=== PATIENT | female | born 1935 | race Caucasian/White ===

== ENCOUNTER → 2018-01-29 | Outpatient (CLI) | payer MEDICARE ==
[~2018-01-29] MED LIST: AMLO5TAB4 PO; ASPI-496 PO; ASPI325T17 PO; LISI-170 PO; OXYC-302 PO; REGADENOSON 0.4 MG/5 ML SYRINGE ONE
== END ==
LOC: RAD 07:11
PROVIDERS: ATTEND Internal Medicine Cardiovascular Disease
DX: I10 Essential (primary) hypertension (principal)
CPT/HCPCS: 78452; 93017; A9502; J2785

== ENCOUNTER → 2018-01-30 | Outpatient (CLI) | payer MEDICARE ==
[~2018-01-30] MED LIST changes: -REGADENOSON 0.4 MG/5 ML SYRINGE ONE
== END | disposition home or self-care (01) ==
LOC: CVU 11:22
PROVIDERS: ATTEND Internal Medicine Cardiovascular Disease
DX: I08.3 Combined rheumatic disorders of mitral, aortic and tricuspid valves (principal); E78.5 Hyperlipidemia, unspecified; I10 Essential (primary) hypertension; Z86.73 Personal history of transient ischemic attack (TIA), and cerebral infarction without residual deficits
CPT/HCPCS: 93306

== ENCOUNTER 2018-07-09 12:15 | Emergency (ER) | payer MEDICARE ==
[~2018-07-09] VITALS: Ht 157.5 cm; Wt 64.0 kg
[2018-07-09 12:19] VITALS: BP 187/91
== END 2018-07-09 12:48 | disposition home or self-care (01) ==
LOC: ED 12:15
DX: M25.571 Pain in right ankle and joints of right foot (principal); I10 Essential (primary) hypertension; Z86.73 Personal history of transient ischemic attack (TIA), and cerebral infarction without residual deficits
CPT/HCPCS: 99283

== ENCOUNTER 2019-03-04 07:01 | Emergency (ER) | payer MEDICARE ==
[~2019-03-04] VITALS: Ht 157.5 cm; Wt 65.7 kg
[2019-03-04 07:06] VITALS: BP 168/88
--- NOTE | 2019-03-04 07:22 | NUR ---
83 Y/O FEMALE PRESENTS TO ED WITH C/O LEFT SHOULDER PAIN. PER PT "I WAS WALKING WITH A RAKE AND MY WALKING STICK AND I TRIPPED AND FELL ONTO THE CONCRETE. MY LEFT SHOULDER IS HURTING PRETTY BAD." PT PLACED INTO GOWN. NO ACUTE DISTRESS NOTED. FRIEND BEDSIDE.
--- NOTE | 2019-03-04 07:54 | NUR ---
PT STATES "I DON'T WANT ANY KIND OF PAIN MEDICATIONS."
--- NOTE | 2019-03-04 09:06 | NUR ---
LATE ENTRY FOR 0845: SLING PLACED ON PT. PT EDUCATED REGARDING USE. PT VERBALIZED UNDERSTANDING REGARDING ALL TEACHING.
--- NOTE | 2019-03-04 09:07 | NUR ---
Patient/Caregiver given discharge instructions and they have confirmed that they understand the instructions. Patient PUSHED TO DISCHARGE DESK IN WHEEL CHAIR. PT LEFT WITH ALL PERSONAL BELONGINGS.
--- NOTE | 2019-03-04 09:09 | NUR ---
PT REFUSED THE PAIN MEDICATION PRESCRIPTION. EDPA AWARE. RX PLACED IN SHREADER.
== END 2019-03-04 09:33 | disposition home or self-care (01) ==
LOC: ED 09:15
DX: S42.222A 2-part displaced fracture of surgical neck of left humerus, initial encounter for closed fracture (principal); S42.252A Displaced fracture of greater tuberosity of left humerus, initial encounter for closed fracture; S42.102A Fracture of unspecified part of scapula, left shoulder, initial encounter for closed fracture; I10 Essential (primary) hypertension; Z86.73 Personal history of transient ischemic attack (TIA), and cerebral infarction without residual deficits; W01.198A Fall on same level from slipping, tripping and stumbling with subsequent striking against other object, initial encounter; Y93.89 Activity, other specified; Y92.009 Unspecified place in unspecified non-institutional (private) residence as the place of occurrence of the external cause; Y99.8 Other external cause status
CPT/HCPCS: 99283

== ENCOUNTER 2019-05-17 07:08 | Outpatient (CLI) | payer MEDICARE ==
[2019-05-17 07:34] LABS: BASOPHILS # (AUTO) 0.04 x10^3/uL (0-0.1); BASOPHILS % (AUTO) 1 % (0-1); EOSINOPHILS # (AUTO) 0.28 x10^3/uL (0-0.4); EOSINOPHILS % (AUTO) 5 % (1-7); LYMPHOCYTES # (AUTO) 1.42 x10^3/uL (1-3.4); LYMPHOCYTES % (AUTO) 23 % (22-44); MD NO; MEAN CORPUSCULAR HGB CONC 33.2 g/dL (32.4-35.8); MEAN CORPUSCULAR VOLUME 96.5 fL (80-100); MEAN PLATELET VOLUME 7.2 fL (7.4-10.4); MONOCYTES % (AUTO) 10 % (2-9); NEUTROPHILS # (AUTO) 3.75 x10^3/uL (1.8-6.8); NEUTROPHILS % (AUTO) 62 % (42-75); PLATELET COUNT 252 x10^3/uL (130-400); RED BLOOD COUNT 4.32 x10^6/uL (3.82-5.3); RED CELL DISTRIBUTION WIDTH 13.4 % (9.6-15.2)
[2019-05-17 07:35] LABS: ALANINE AMINOTRANSFERASE 19 U/L (12-78); ALBUMIN 3.7 g/dL (3.4-5.0); ANION GAP 6 mmol/L (5-15); CALCIUM 8.7 mg/dL (8.5-10.1); CHLORIDE 105 mmol/L (98-107)
[2019-05-17 07:38] LABS: ALKALINE PHOSPHATASE 51 U/L (45-117); BILIRUBIN,TOTAL 0.6 mg/dL (0.2-1.0); CHOL/HDL RATIO 2.9; CHOLESTEROL, TOTAL 213 mg/dL (140-239); HDL CHOL % 34 % (28-40); HDL CHOLESTEROL (DIRECT) 73 mg/dL (40-60); LDL CHOLESTEROL,CALCULATED 118 mg/dL (54-169); LDL/HDL RATIO 1.6 (0.5-3.0); TOTAL PROTEIN 7.3 g/dL (6.4-8.2); TRIGLYCERIDES 112 mg/dL (50-200); VLDL CHOLESTEROL 22 mg/dL (0-25)
== END 2019-05-17 23:59 | disposition home or self-care (01) ==
LOC: LAB 07:08
PROVIDERS: ATTEND Nurse Practitioner Family
DX: I10 Essential (primary) hypertension (principal); I63.9 Cerebral infarction, unspecified
CPT/HCPCS: 36415; 80053; 80061; 85025

== ENCOUNTER 2019-05-18 14:44 | Emergency (ER) | payer MEDICARE, OTHER ==
[~2019-05-18] VITALS: Ht 160 cm; Wt 63.7 kg
[2019-05-18 16:28] VITALS: BP 175/85
== END 2019-05-18 19:14 | disposition home or self-care (01) ==
LOC: ED 15:42
DX: H81.11 Benign paroxysmal vertigo, right ear (principal); H81.391 Other peripheral vertigo, right ear; I10 Essential (primary) hypertension; Z86.73 Personal history of transient ischemic attack (TIA), and cerebral infarction without residual deficits
CPT/HCPCS: 36415; 70450; 70496; 70498; 70551; 80048; 82040; 85025; 93005; 96374; 96375; 99284; J2060; J2405; Q9967

== ENCOUNTER → 2019-12-11 | Outpatient (CLI) | payer MEDICARE, OTHER ==
[~2019-12-11] MED LIST changes: +DILT120T3 PO; +diltiazem PO
[2019-12-11 11:57] LABS: BASOPHILS # (AUTO) 0.05 x10^3/uL (0-0.1); BASOPHILS % (AUTO) 1 % (0-1); EOSINOPHILS # (AUTO) 0.09 x10^3/uL (0-0.4); EOSINOPHILS % (AUTO) 1 % (1-7); LYMPHOCYTES # (AUTO) 1.36 x10^3/uL (1-3.4); LYMPHOCYTES % (AUTO) 16 % (22-44); MD NO; MEAN CORPUSCULAR HEMOGLOBIN 33.1 pg (27.0-34.8); MEAN CORPUSCULAR VOLUME 97.4 fL (80-100); MEAN PLATELET VOLUME 6.7 fL (7.4-10.4); MONOCYTES # (AUTO) 0.57 x10^3/uL (0.2-0.8); MONOCYTES % (AUTO) 7 % (2-9); NEUTROPHILS # (AUTO) 6.68 x10^3/uL (1.8-6.8); NEUTROPHILS % (AUTO) 76 % (42-75); PLATELET COUNT 302 x10^3/uL (130-400); RED BLOOD COUNT 4.22 x10^6/uL (3.82-5.3); RED CELL DISTRIBUTION WIDTH 13.4 % (9.6-15.2)
[2019-12-11 12:15] LABS: ALANINE AMINOTRANSFERASE 19 U/L (12-78); ALBUMIN 3.8 g/dL (3.4-5.0); ANION GAP 8 mmol/L (5-15); CALCIUM 9.2 mg/dL (8.5-10.1); CHLORIDE 104 mmol/L (98-107); CREATININE 1.08 mg/dL (0.55-1.02)
[2019-12-11 12:16] LABS: ALKALINE PHOSPHATASE 48 U/L (45-117); BILIRUBIN,TOTAL 0.7 mg/dL (0.2-1.0); TOTAL PROTEIN 7.7 g/dL (6.4-8.2)
== END | disposition home or self-care (01) ==
LOC: STAR 10:19
PROVIDERS: ATTEND Orthopaedic Surgery
DX: Z01.818 Encounter for other preprocedural examination (principal); M18.12 Unilateral primary osteoarthritis of first carpometacarpal joint, left hand; M25.552 Pain in left hip
CPT/HCPCS: 36415; 80053; 85025; 87081; 93005

== ENCOUNTER 2019-12-16 06:23 | Observation (INO) | payer MEDICARE ==
[~2019-12-16] VITALS: Ht 157.5 cm; Wt 65.0 kg
[~2019-12-16 06:23] MED LIST changes: -DILT120T3 PO
[2019-12-16] MEDS ORDERED: LACTATED RINGERS 1,000 ML IV SCH (06:57)
[2019-12-16] MEDS ORDERED: KETOROLAC 60 MG/2 ML ONE (07:01)
[2019-12-16] MEDS ORDERED: VANCOMYCIN 1,000 MG ONE (07:01)
[2019-12-16] MEDS ORDERED: TRANEXAMIC ACID 100 MG/ML, 10ML ONE ×2 (07:01)
[2019-12-16] MEDS ORDERED: SODIUM CHLORIDE 0.9% 50 ML ONE (07:01)
[2019-12-16] MEDS ORDERED: ROPIvacaine/PF 0.2%, 20 ML ONE (07:01)
[2019-12-16] MEDS ORDERED: EPINEPHRINE 1 MG/ML, 1ML ONE (07:02)
[2019-12-16] MEDS ORDERED: DILT120T3 PO (07:22)
[2019-12-16 07:24] VITALS: BP 194/97
[2019-12-16] MEDS ORDERED: FENTANYL PF 250 MCG/5ML ONE (07:56)
[2019-12-16] MEDS ORDERED: MIDAZOLAM 1 MG/ML, 2ML ONE (07:56)
[2019-12-16] MEDS ORDERED: DEXMEDETOMIDINE 200 MCG/2 ML ONE (08:15)
[2019-12-16] MEDS ORDERED: KETAMINE 10 MG/ML, 20ML ONE (08:16)
[2019-12-16] MEDS ORDERED: SUGAMMADEX 200 MG/2 ML IVPush ONE (08:31)
[2019-12-16] MEDS ORDERED: ROCURONIUM 10MG/ML,5ML ONE (08:31)
[2019-12-16] MEDS ORDERED: ONDANSETRON 2MG/ML, 2ML ONE (08:31)
[2019-12-16] MEDS ORDERED: DEXAMETHASONE 4 MG/ML, 1ML ONE (08:31)
[2019-12-16] MEDS ORDERED: PROPOFOL 10 MG/ML, 20ML ONE (08:31)
[2019-12-16] MEDS ORDERED: CEFAZOLIN 1,000 MG ONE (08:31)
[2019-12-16] MEDS ORDERED: HALOPERIDOL 5 MG/ML IV PRN (09:30)
[2019-12-16] MEDS ORDERED: hydrALAzine 20 MG/ML, 1ML IV PRN (09:30)
[2019-12-16] MEDS ORDERED: MEPERIDINE/PF 25MG/ML,1ML IVPush PRN (09:30)
[2019-12-16] MEDS ORDERED: FENTANYL PF 100 MCG/2ML IV PRN (09:30)
[2019-12-16] MEDS ORDERED: OXYcodone 5 MG/5 ML ORAL.SOL UDC PO PRN (09:30)
[2019-12-16] MEDS ORDERED: ACETAMINOPHEN 325 MG TABLET PO PRN (09:30)
[2019-12-16] MEDS ORDERED: HYDROmorphone 2 MG/ML, 1ML IVPush PRN (09:30)
[2019-12-16] MEDS: D5%-0.45% NACL 1,000 ML IV SCH ×2 (09:56→11:47)
[2019-12-16] MEDS ORDERED: BISACODYL 10 MG SUPP PR PRN (10:00)
[2019-12-16] MEDS ORDERED: SENNA/DOCUSATE TABLET PO PRN (10:00)
[2019-12-16] MEDS ORDERED: DIAZEPAM 5 MG TABLET PO PRN (10:00)
[2019-12-16] MEDS ORDERED: POLYETHYLENE GLYCOL 17 GM PACKET PO PRN (10:00)
[2019-12-16] MEDS: ACETAMINOPHEN 500 MG TABLET PO SCH ×3 (10:00→22:29)
[2019-12-16] MEDS ORDERED: ONDANSETRON 4 MG TABLET PO PRN (10:00)
[2019-12-16] MEDS ORDERED: HYDROmorphone 1 MG/ML, 1ML INJ IVPush PRN (10:00)
[2019-12-16] MEDS ORDERED: KETOROLAC 30 MG/1 ML IV SCH (10:00)
[2019-12-16] MEDS ORDERED: ZOLPIDEM 5MG TABLET PO PRN (10:00)
[2019-12-16] MEDS ORDERED: ALUMINUM/MAG/SIMETHICONE 30 ML UDC PO PRN (10:00)
[2019-12-16] MEDS ORDERED: ONDANSETRON 2MG/ML, 2ML IV PRN (10:00)
[2019-12-16] MEDS ORDERED: PSYLLIUM PACKET PO PRN (10:00)
[2019-12-16] MEDS ORDERED: PROMETHAZINE 12.5 MG SUPP PR PRN (10:00)
[2019-12-16] MEDS ORDERED: DIPHENHYDRAMINE 50 MG CAPSULE PO PRN (10:00)
[2019-12-16] MEDS ORDERED: MAGNESIUM HYDROXIDE 8%, 30ML UDC PO PRN (10:00)
[2019-12-16] MEDS ORDERED: OXYcodone 5 MG/5 ML ORAL.SOL UDC ONE (10:23)
[2019-12-16] MEDS ORDERED: TRANEXAMIC ACID 1,000 MG in SODIUM CHLORIDE 0.9% 100 ML IVPB ONE (10:30)
[2019-12-16] MEDS ORDERED: hydrALAzine 20 MG/ML, 1ML ONE (10:38)
[2019-12-16 11:20] VITALS: BP 151/79
[2019-12-16] MEDS: CALCIUM/VITAMIN D3 250-125 TABLET PO SCH ×2 (12:18→17:00)
[2019-12-16 13:00] VITALS: BP 130/76
[2019-12-16] MEDS: ASPIRIN 81 MG TABLET EC PO SCH ×2 (15:11→22:29)
[2019-12-16] MEDS: CEFAZOLIN PMX 2GM/50ML 50 ML IVPB SCH (16:25)
[2019-12-16] MEDS: FERROUS SULFATE 325 MG TABLET PO SCH (17:00)
[2019-12-16 19:38] VITALS: BP 162/97
[2019-12-16] MEDS: DOCUSATE 100 MG CAPSULE PO SCH (21:00)
[2019-12-16] MEDS: DILTIAZEM 120 MG TABLET PO SCH (21:00)
[2019-12-16] MEDS: KETOROLAC 30 MG/1 ML IV SCH (22:29)
[2019-12-17] MEDS: CEFAZOLIN PMX 2GM/50ML 50 ML IVPB SCH (00:44)
[2019-12-17 00:52] VITALS: BP 173/81
[2019-12-17 04:38] VITALS: BP 174/84
[2019-12-17] MEDS: ACETAMINOPHEN 500 MG TABLET PO SCH ×2 (04:49→10:36)
[2019-12-17] MEDS ORDERED: DEXAMETHASONE 4 MG/ML, 1ML IVPush SCH (06:00)
[2019-12-17 06:25] VITALS: BP 156/88
[2019-12-17] MEDS: CALCIUM/VITAMIN D3 250-125 TABLET PO SCH (07:59)
[2019-12-17] MEDS: ASPIRIN 81 MG TABLET EC PO SCH (07:59)
[2019-12-17] MEDS: FERROUS SULFATE 325 MG TABLET PO SCH (07:59)
[2019-12-17] MEDS: DILTIAZEM 120 MG TABLET PO SCH (07:59)
[2019-12-17] MEDS: DOCUSATE 100 MG CAPSULE PO SCH (08:00)
[2019-12-17] MEDS ORDERED: ASCORBIC ACID 500 MG TABLET PO SCH (09:00)
[2019-12-17] MEDS ORDERED: MULTIVITAMINS/MINERALS TABLET PO SCH (09:00)
[2019-12-17] MEDS ORDERED: LISINOPRIL 20 MG TABLET PO SCH (09:00)
[2019-12-17] MEDS: KETOROLAC 30 MG/1 ML IV SCH (10:32)
== END 2019-12-17 12:00 | disposition home or self-care (01) ==
LOC: OUT 06:23 → 4NE 11:10 → OUT 12:07 → 4NE 12:10 → DCLOUNGE 12-17 11:40
PROVIDERS: ADMIT Orthopaedic Surgery; ATTEND Orthopaedic Surgery
DX: M16.12 Unilateral primary osteoarthritis, left hip (principal); I10 Essential (primary) hypertension; Z86.73 Personal history of transient ischemic attack (TIA), and cerebral infarction without residual deficits; Z79.82 Long term (current) use of aspirin; Z79.899 Other long term (current) drug therapy
CPT/HCPCS: 27130; 36415; 72170; 85014; 85018; 86850; 86900; 96365; 96366; 96375; 96376; 97161; 97165; C1713; C1776; G0378; J0171; J0360; J0690; J1100; J1885; J2250; J2405; J2704; J2795; J3010; J7120; J3370

== ENCOUNTER 2019-12-26 18:58 | Emergency (ER) | payer MEDICARE ==
[~2019-12-26] VITALS: Ht 157.5 cm; Wt 62.2 kg
[~2019-12-26 18:58] MED LIST changes: +DILT120T3 PO
[2019-12-26] MEDS ORDERED: HYDROcodone/APAP 5/325 TABLET PO ONE (22:30)
[2019-12-26] MEDS ORDERED: HYDROcodone/APAP 5/325 TABLET ONE (22:47)
--- NOTE | 2019-12-26 22:50 | NUR ---
Pt sleeping in room currently. Pt states she has no pain at this time, [place] withheld until pt has c/o pain.
--- NOTE | 2019-12-26 23:33 | NUR ---
Pt road tested with a walker. Pt was able to stand from the bed using the walker with no other assistance. Pt was able to ambulate with the walker with no complications. Pt states her guest has a walker in the trunk of their car.
[2019-12-26 23:49] VITALS: BP 130/76
== END 2019-12-26 23:52 | disposition home or self-care (01) ==
LOC: ED 21:49
DX: M25.552 Pain in left hip (principal); I10 Essential (primary) hypertension; Z86.73 Personal history of transient ischemic attack (TIA), and cerebral infarction without residual deficits
CPT/HCPCS: 99283

== ENCOUNTER → 2020-12-28 | Outpatient (CLI) | payer MEDICARE ==
[~2020-12-28] MED LIST changes: +OMNIPAQUE 350 MG/ML, 100ML BOTTLE ONE; -OXYC-302 PO; +OXYC1TAB14 PO
== END | disposition home or self-care (01) ==
LOC: CFH 13:44
PROVIDERS: ATTEND Surgery
DX: K42.9 Umbilical hernia without obstruction or gangrene (principal); K57.30 Diverticulosis of large intestine without perforation or abscess without bleeding; K76.89 Other specified diseases of liver; M51.36 Other intervertebral disc degeneration, lumbar region; K56.2 Volvulus
CPT/HCPCS: 74177; 82565; Q9967

== ENCOUNTER 2021-05-31 15:00 | Inpatient (IN) | payer MEDICARE ==
[~2021-05-31] VITALS: Ht 158.8 cm; Wt 58.0 kg
[~2021-05-31 15:00] MED LIST changes: -OMNIPAQUE 350 MG/ML, 100ML BOTTLE ONE
[2021-05-31] MEDS ORDERED: SODIUM CHLORIDE FLUSH 10ML SYR IVF ONE (15:30)
--- NOTE | 2021-05-31 15:35 | NUR ---
pt presents to ed with c/o cough x1 week. pt denies CP/SOB. pt a&o, resps even and unlabored, vss, nadn.
--- NOTE | 2021-05-31 15:46 | NUR ---
PIV placed, labs drawn, vss, sekoun.
[2021-05-31 16:08] LABS: ALANINE AMINOTRANSFERASE 33 U/L (12-78); ALBUMIN 2.8 g/dL (3.4-5.0); ANION GAP 9 mmol/L (5-15); CHLORIDE 92 mmol/L (98-107); CREATININE 0.87 mg/dL (0.55-1.02)
[2021-05-31 16:12] LABS: ALKALINE PHOSPHATASE 50 U/L (45-117); BILIRUBIN,TOTAL 0.7 mg/dL (0.2-1.0); TOTAL PROTEIN 7.5 g/dL (6.4-8.2); TROPONIN I < 0.015 ng/mL (0.000-0.045)
[2021-05-31 16:23] LABS: BASOPHILS % (AUTO) 1 % (0-1); EOSINOPHILS % (AUTO) 1 % (1-7); LYMPHOCYTES % (AUTO) 10 % (22-44); MEAN CORPUSCULAR HEMOGLOBIN 31.6 pg (27.0-34.8); MEAN CORPUSCULAR HGB CONC 34.1 g/dL (32.4-35.8); MEAN PLATELET VOLUME 6.9 fL (7.4-10.4); MONOCYTES % (AUTO) 7 % (2-9); NEUTROPHILS % (AUTO) 82 % (42-75); PLATELET COUNT 477 x10^3/uL (130-400); RED CELL DISTRIBUTION WIDTH 13.8 % (9.6-15.2)
--- NOTE | 2021-05-31 16:31 | NUR ---
pt resting in bed, a&o, resps even and unlabored, vss, nadn. all monitors attached, nsr, awaiting lab results and dispo.
--- NOTE | 2021-05-31 17:43 | NUR ---
pt o2 sat 83% after changing depends diaper, put on 2L nc, now 94%
--- NOTE | 2021-05-31 17:46 | NUR ---
[facility] at bedside for eval
[2021-05-31] MEDS ORDERED: POLYETHYLENE GLYCOL 17 GM PACKET PO PRN (18:00)
[2021-05-31] MEDS ORDERED: ACETAMINOPHEN 325 MG TABLET PO PRN (18:00)
[2021-05-31] MEDS ORDERED: DOCUSATE 100 MG CAPSULE PO PRN (18:00)
[2021-05-31] MEDS ORDERED: BISACODYL 10 MG SUPP PR PRN (18:00)
[2021-05-31] MEDS ORDERED: SODIUM CHLORIDE 0.9% 1,000 ML IV SCH (18:00)
[2021-05-31] MEDS ORDERED: ONDANSETRON 2MG/ML, 2ML IVPush PRN (18:00)
[2021-05-31] MEDS ORDERED: MELATONIN 5 MG TABLET PO PRN (18:00)
[2021-05-31] MEDS ORDERED: ENALAPRILAT 1.25 MG/ML, 2ML IVPush PRN (18:00)
[2021-05-31] MEDS ORDERED: ONDANSETRON ODT 4 MG PO PRN (18:00)
[2021-05-31] MEDS ORDERED: hydrALAzine 20 MG/ML, 1ML IVPush PRN (18:00)
--- NOTE | 2021-05-31 18:28 | NUR ---
report called to receiving maris George
--- NOTE | 2021-05-31 19:16 | NUR ---
pt transported up to floor at this time with tech
[2021-05-31] MEDS ORDERED: ENOXAPARIN 40 MG/0.4 ML SQ SCH (19:30)
[2021-05-31] MEDS ORDERED: CEFTRIAXONE 1,000 MG in DEXTROSE 5% 50 ML IVPB SCH (20:00)
[2021-05-31 20:21] VITALS: BP 160/86
[2021-05-31] MEDS: DOXYCYCLINE 100MG TABLET PO SCH (22:53)
[2021-05-31] MEDS: DILTIAZEM 120 MG TABLET PO SCH (22:53)
[2021-05-31] MEDS: ASCORBIC ACID 500 MG TABLET PO SCH (22:53)
[2021-06-01 01:41] VITALS: BP 133/73
[2021-06-01] MEDS ORDERED: OMNIPAQUE 350 MG/ML, 100ML BOTTLE ONE (02:18)
[2021-06-01 04:27] LABS: BASOPHILS % (AUTO) 1 % (0-1); EOSINOPHILS % (AUTO) 1 % (1-7); LYMPHOCYTES % (AUTO) 8 % (22-44); MEAN CORPUSCULAR HGB CONC 34.3 g/dL (32.4-35.8); MEAN PLATELET VOLUME 6.8 fL (7.4-10.4); MONOCYTES % (AUTO) 7 % (2-9); NEUTROPHILS % (AUTO) 83 % (42-75); PLATELET COUNT 412 x10^3/uL (130-400); RED BLOOD COUNT 3.61 x10^6/uL (3.82-5.3); RED CELL DISTRIBUTION WIDTH 13.8 % (9.6-15.2)
[2021-06-01 04:38] LABS: ANION GAP 7 mmol/L (5-15); CALCIUM 8.2 mg/dL (8.5-10.1); CHLORIDE 99 mmol/L (98-107)
[2021-06-01 04:40] LABS: CREATININE 0.73 mg/dL (0.55-1.02)
[2021-06-01] MEDS ORDERED: ACETAMINOPHEN 325 MG TABLET PO PRN (08:00)
[2021-06-01 08:54] VITALS: BP 157/84
[2021-06-01] MEDS ORDERED: LISINOPRIL 20 MG TABLET PO SCH (09:00)
[2021-06-01] MEDS ORDERED: ZINC SULFATE 220 MG CAPSULE PO SCH (09:00)
[2021-06-01] MEDS ORDERED: ASPIRIN 81 MG TABLET EC PO SCH (09:00)
[2021-06-01] MEDS: DOXYCYCLINE 100MG TABLET PO SCH (09:03)
[2021-06-01] MEDS: ASCORBIC ACID 500 MG TABLET PO SCH (09:03)
[2021-06-01] MEDS: DILTIAZEM 120 MG TABLET PO SCH (09:03)
[2021-06-01 14:01] VITALS: BP 150/76
[2021-06-01] MEDS ORDERED: ATOR40TA78 PO (15:53)
[2021-06-01] MEDS ORDERED: SODIUM CHLORIDE 0.9% 1,000 ML IV SCH ×2 (18:00)
== END 2021-06-01 19:24 | disposition home or self-care (01) | DRG 194 ==
LOC: ED 17:05 → OBSVTOIN 18:15 → EDIP 18:15 → 3N 19:25
PROVIDERS: ADMIT Internal Medicine; ATTEND Internal Medicine
DX: J18.9 Pneumonia, unspecified organism (principal); E87.1 Hypo-osmolality and hyponatremia; E86.0 Dehydration; I10 Essential (primary) hypertension; I69.344 Monoplegia of lower limb following cerebral infarction affecting left non-dominant side; Z20.822 Contact with and (suspected) exposure to COVID-19; Z86.16 Personal history of COVID-19; Z96.642 Presence of left artificial hip joint; Z88.8 Allergy status to other drugs, medicaments and biological substances; D47.3 Essential (hemorrhagic) thrombocythemia
CPT/HCPCS: 36415; 71045; 71275; 80048; 80053; 82728; 83615; 84145; 84295; 84484; 85025; 85379; 86140; 87040; 93005; 96372; 96374; G0378; J0696; J1650; Q9967; U0005; J7030; U0003